=== PATIENT | male | born 1935 | race African-American/Black ===

== ENCOUNTER 2020-09-25 10:55 | Inpatient (IN) | payer OTHER ==
[~2020-09-25] VITALS: Ht 190.5 cm; Wt 82.0 kg
[2020-09-25 12:50] LABS: BASOPHILS % 0.8 % (0.0-2.0); EOSINOPHILS % 1.4 % (0.0-5.0); HEMATOCRIT. 36.7 % (42.0-52.0); HEMOGLOBIN. 11.8 g/dL (14.0-18.0); LYMPHOCYTES % 14.3 % (20.0-50.0); MEAN CORPUSCULAR HEMOGLOBIN 31.1 pg (28.0-32.0); MEAN CORPUSCULAR VOLUME 96.8 fL (80.0-94.0); MEAN PLATELET VOLUME 7.4 fl (7.4-10.4); MONOCYTES % 10.6 % (2.0-8.0); NEUTROPHILS % 72.9 % (40.0-76.0); PLATELET 203 x1000/uL (130-400); RED CELL DISTRIBUTION WIDTH 20.9 % (11.6-14.6)
[2020-09-25 12:52] LABS: CHLORIDE 109 mEq/L (98-107)
[2020-09-25 12:55] LABS: D-DIMER 0.64 mg/L FEU (<0.50)
[2020-09-25 12:56] LABS: ETHANOL BLOOD < 10 mg/dL
[2020-09-25 12:58] LABS: C REACTIVE PROTEIN QUANT 2.3 mg/L (0.0-3.0)
[2020-09-25 13:02] LABS: CREATINE KINASE 118 IU/L (39-308)
[2020-09-25 17:18] LABS: CLARITY URINE CLEAR (CLEAR); COLOR URINE YELLOW (YELLOW); KETONES URINE NEGATIVE (NEGATIVE); LEUKOCYTE ESTERASE URINE NEGATIVE (NEGATIVE); NITRITE URINE NEGATIVE (NEGATIVE); OCCULT BLOOD URINE NEGATIVE (NEGATIVE); PH URINE 5.5 (4.5-8.0); PROTEIN URINE NEGATIVE (NEGATIVE); SPECIFIC GRAVITY URINE 1.015 (1.005-1.030); UROBILINOGEN URINE 0.2 E.U./dL (0.2-1.0)
[2020-09-25 17:31] LABS: METHADONE URINE SCREEN NEGATIVE (NEGATIVE); OPIATES URINE SCREEN NEGATIVE (NEGATIVE)
[2020-09-25 17:32] LABS: *AMPHETAMINES SCREEN URINE NEGATIVE (NEGATIVE); *BARBITURATES SCREEN URINE NEGATIVE (NEGATIVE); *BENZODIAZEPINES SCREEN URINE NEGATIVE (NEGATIVE); *COCAINE SCREEN URINE NEGATIVE (NEGATIVE); CANNABINOID URINE SCREEN NEGATIVE (NEGATIVE); PHENCYCLIDINE URINE SCREEN NEGATIVE (NEGATIVE)
[2020-09-25] MEDS ORDERED: MORPHINE SULFATE 2 MG/ML CPJ (NOT FOR IM USE) IV PRN (18:30)
[2020-09-25] MEDS ORDERED: HYDROCODONE/ACETAMINOPHEN 5/325MG TABLET PO PRN (18:30)
[2020-09-25] MEDS ORDERED: DIPHENHYDRAMINE 50MG/ML VIAL IV PRN (18:30)
[2020-09-25] MEDS ORDERED: ACETAMINOPHEN 650MG SUPP PR PRN (18:30)
[2020-09-25] MEDS ORDERED: DOCUSATE SODIUM 100MG CAPSULE PO PRN (18:30)
[2020-09-25] MEDS ORDERED: ACETAMINOPHEN 325MG TABLET PO PRN (18:30)
[2020-09-25] MEDS ORDERED: ONDANSETRON HCL 4MG/2ML INJ IV PRN (18:30)
[2020-09-25] MEDS ORDERED: LORAZEPAM 0.5MG TABLET PO PRN (18:30)
[2020-09-25] MEDS ORDERED: NA PHOS,M-B/NA PHOS,DI-BA ENEMA 118ML PR PRN (18:30)
[2020-09-25] MEDS ORDERED: GUAIFENESIN 200MG/10ML SUGAR FREE UDC PO PRN (18:30)
[2020-09-25] MEDS ORDERED: MAGNESIUM/ALUMINUM HYDROXIDE/SIMETHICONE 30ML UDC PO PRN (18:30)
[2020-09-25] MEDS: PIPERACILLIN/TAZ 3.375G PREMIX 50 ML IV SCH (20:33)
[2020-09-25] MEDS: ATORVASTATIN CALCIUM 10MG TABLET PO SCH (20:55)
[2020-09-25] MEDS: FAMOTIDINE 20MG TABLET PO SCH (20:55)
[2020-09-26] LABS: CREATINE KINASE 109 IU/L (39-308)
[2020-09-26 00:01] LABS: CREATINE KINASE MB FRACTION 2.3 ng/mL (0.5-3.6)
[2020-09-26] MEDS: PIPERACILLIN/TAZ 3.375G PREMIX 50 ML IV SCH ×4 (00:33→18:36)
[2020-09-26 06:01] LABS: BASOPHILS % 1.1 % (0.0-2.0); EOSINOPHILS % 2.8 % (0.0-5.0); HEMATOCRIT. 35.8 % (42.0-52.0); HEMOGLOBIN. 11.7 g/dL (14.0-18.0); LYMPHOCYTES % 21.4 % (20.0-50.0); MEAN CORPUSCULAR HEMOGLOBIN 31.7 pg (28.0-32.0); MEAN CORPUSCULAR VOLUME 96.8 fL (80.0-94.0); MEAN PLATELET VOLUME 7.6 fl (7.4-10.4); MONOCYTES % 12.1 % (2.0-8.0); NEUTROPHILS % 62.6 % (40.0-76.0); PLATELET 186 x1000/uL (130-400); RED CELL DISTRIBUTION WIDTH 21.3 % (11.6-14.6)
[2020-09-26 06:25] LABS: CHLORIDE 107 mEq/L (98-107)
[2020-09-26 06:39] LABS: LDL CHOLESTEROL 54 mg/dL (5-100)
[2020-09-26 06:41] LABS: CREATINE KINASE 115 IU/L (39-308); CREATINE KINASE MB FRACTION 2.2 ng/mL (0.5-3.6); T4 FREE 0.98 ng/dL (0.76-1.46)
[2020-09-26 06:42] LABS: HDL CHOLESTEROL 78 mg/dL (40-59)
[2020-09-26] MEDS: ASPIRIN 81MG EC TABLET PO SCH (09:41)
[2020-09-26] MEDS: FAMOTIDINE 20MG TABLET PO SCH (21:00)
[2020-09-26] MEDS: ATORVASTATIN CALCIUM 10MG TABLET PO SCH (21:00)
[2020-09-27 06:03] LABS: CHLORIDE 105 mEq/L (98-107)
[2020-09-27 06:04] LABS: EOSINOPHILS % 3.5 % (0.0-5.0); HEMATOCRIT. 36.4 % (42.0-52.0); LYMPHOCYTES % 21.2 % (20.0-50.0); MEAN CORPUSCULAR HEMOGLOBIN 31.5 pg (28.0-32.0); MEAN CORPUSCULAR VOLUME 95.3 fL (80.0-94.0); MEAN PLATELET VOLUME 7.7 fl (7.4-10.4); MONOCYTES % 11.1 % (2.0-8.0); NEUTROPHILS % 63.2 % (40.0-76.0); PLATELET 192 x1000/uL (130-400); RED BLOOD CELL COUNT 3.82 mill/uL (4.7-6.1); RED CELL DISTRIBUTION WIDTH 20.8 % (11.6-14.6)
[2020-09-27] MEDS: PIPERACILLIN/TAZ 3.375G PREMIX 50 ML IV SCH (09:05)
[2020-09-27] MEDS: ASPIRIN 81MG EC TABLET PO SCH (09:05)
[2020-09-27] MEDS ORDERED: PIPERACILLIN/TAZ 3.375G PREMIX 50 ML IV SCH (15:00)
[2020-09-27] MEDS ORDERED: PIPERACILLIN/TAZOBACTAM 3.375 G in DEXT 5% WATER 100 ML IV SCH (15:17)
[2020-09-27 15:48] VITALS: BP 117/75
== END 2020-09-27 16:11 | disposition home or self-care (01) | DRG 91 ==
LOC: ER 11:17 → MICUSO 15:50 → EDBEDREQ 15:53 → SUPCPDRO 18:27 → ENRESERV 09-26 07:23 → 5WST 09-27 08:32 → MICUSO 09-27 08:49
PROVIDERS: ADMIT Ophthalmology; ATTEND Ophthalmology
DX: G92 Toxic encephalopathy (principal); J69.0 Pneumonitis due to inhalation of food and vomit; I42.9 Cardiomyopathy, unspecified; I69.352 Hemiplegia and hemiparesis following cerebral infarction affecting left dominant side; G90.8 Other disorders of autonomic nervous system; E03.9 Hypothyroidism, unspecified; E78.5 Hyperlipidemia, unspecified; I07.1 Rheumatic tricuspid insufficiency; I10 Essential (primary) hypertension; I27.21 Secondary pulmonary arterial hypertension; R00.1 Bradycardia, unspecified; D64.9 Anemia, unspecified; E78.00 Pure hypercholesterolemia, unspecified; I95.9 Hypotension, unspecified; Z20.822 Contact with and (suspected) exposure to COVID-19; F10.11 Alcohol abuse, in remission; I69.320 Aphasia following cerebral infarction; Z79.899 Other long term (current) drug therapy
CPT/HCPCS: 36415; 70551; 71045; 80048; 80053; 80061; 80305; 80320; 81003; 82550; 82553; 82728; 82962; 83036; 83615; 83735; 83880; 84145; 84439; 84443; 84484; 85025; 85379; 85384; 86140; 87635; 93005; 93880; 93970; 99285; J2543; J7060; G0480